=== PATIENT | female | born 1970 | race Native Hawaiian/Other Pacific Islander ===

== ENCOUNTER 2016-11-27 11:33 | Outpatient (CLI) | payer BC ==
[2016-11-27] MEDS ORDERED: ASPIRIN325 M1 OR (14:17)
[2016-11-27] MEDS ORDERED: HYDROCHLOROT12.5 M1 PO (14:17)
[2016-11-28] MEDS ORDERED: CITA20TA2 PO (12:58)
[2016-11-28] MEDS ORDERED: LIPITOR80 MG PO (12:58)
== END 2016-11-27 12:35 | disposition home or self-care (01) ==
LOC: CT 11:33
DX: R51 Headache (principal); G51.0 Bell's palsy

== ENCOUNTER 2016-11-27 13:38 | Observation (INO) | payer BC ==
[~2016-11-27] VITALS: Ht 162.6 cm; Wt 82.6 kg
[2016-11-27 14:04] VITALS: BP 159/70; TEMP 98.6
[2016-11-27 14:15] VITALS: BP 125/49
[2016-11-27] MEDS ORDERED: HYDROCHLOROT12.5 M1 PO (14:17)
[2016-11-27] MEDS ORDERED: ASPIRIN325 M1 OR (14:17)
[2016-11-27 14:27] LABS: PLATELET COUNT 230 K/uL (152-353)
[2016-11-27 14:29] LABS: POTASSIUM 3.9 mmol/L (3.6-5.2); SODIUM 137 mmol/L (136-145)
[2016-11-27 14:45] VITALS: BP 127/45
[2016-11-27 15:17] VITALS: BP 153/56; TEMP 98.8; Ht 162.6 cm; Wt 82.6 kg
[2016-11-27 16:00] VITALS: BP 153/56; TEMP 98.8
[2016-11-27 20:00] VITALS: BP 147/62; TEMP 98.6
[2016-11-28] VITALS: BP 116/49; TEMP 98.6
[2016-11-28 04:00] VITALS: BP 139/61; TEMP 98.7
[2016-11-28 06:13] LABS: PLATELET COUNT 201 K/uL (152-353)
[2016-11-28 06:16] LABS: SODIUM 137 mmol/L (136-145)
[2016-11-28 07:58] VITALS: BP 169/69; TEMP 98.7
[2016-11-28 11:53] VITALS: BP 160/54; TEMP 98.3
[2016-11-28] MEDS ORDERED: CITA20TA2 PO (12:58)
[2016-11-28] MEDS ORDERED: LIPITOR80 MG PO (12:58)
== END 2016-11-28 15:15 | disposition home or self-care (01) ==
LOC: ED 13:38 → MED/SURG 14:10
PROVIDERS: Emergency Medicine
DX: I63.49 Cerebral infarction due to embolism of other cerebral artery (principal); R29.810 Facial weakness; E03.8 Other specified hypothyroidism
CPT/HCPCS: 36415; 80053; 80061; 84443; 85027; 85651; 86039; 93005; 96372; 96374; 99220; 99283; G0378; J1650; J3490

== ENCOUNTER 2022-03-05 14:05 | Outpatient (CLI) | payer OTHER ==
[~2022-03-05 14:05] MED LIST: ASPIRIN325 M1 OR; CITA20TA2 PO; HYDROCHLOROT12.5 M1 PO; LIPITOR80 MG PO
== END 2022-03-05 21:21 | disposition home or self-care (01) ==
LOC: RAD 14:05
PROVIDERS: ATTEND Registered Nurse
DX: Z01.818 Encounter for other preprocedural examination (principal)